=== PATIENT | male | born 2000 | race Caucasian/White ===

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

== ENCOUNTER 2024-12-24 09:49 | Observation (INO) | payer OTHER ==
[~2024-12-24] VITALS: Ht 182.9 cm; Wt 135.2 kg
[~2024-12-24 09:49] MED LIST: IBUP600T42 PO
[2024-12-24] MEDS ORDERED: LISI20TA33 (10:11)
[2024-12-24] MEDS ORDERED: EPIN0.3I11 IM (10:11)
[2024-12-24] MEDS ORDERED: BUPR-766 (10:11)
[2024-12-24] MEDS ORDERED: FAMO1TAB11 PO (10:11)
[2024-12-24] MEDS: MORPHINE 2 MG/ML 1 ML VIAL IV ONE (10:15)
[2024-12-24] MEDS: ONDANSETRON 4MG 2ML VIAL IV ONE (10:15)
[2024-12-24 11:08] LABS: BASO # 0.0 10^3/uL (0.0-0.2); BASO % 0.2 % (0.0-1.0); EOS # 0.2 10^3/uL (0.0-0.5); EOS % 2.0 % (0.0-3.0); LYMPH # 1.7 10^3/uL (1.5-5.0); LYMPH % 16.6 % (24.0-44.0); MONO # 0.7 10^3/uL (0.0-0.8); MONO % 6.4 % (2.0-8.0); NEUTROPHILS # 7.5 10^3/uL (1.5-8.5); NEUTROPHILS % 74.3 % (36.0-66.0); PLATELET COUNT, AUTOMATED 208 10^3/uL (150-450)
[2024-12-24 11:09] LABS: KETONE, URINE AUTO RFX NEGATIVE (NEGATIVE); LEUKOCYTE ESTERASE UR AUTO RFX NEGATIVE (NEGATIVE); MUCUS, URINE RFX SMALL (NEGATIVE); NITRITE, URINE AUTO RFX NEGATIVE (NEGATIVE); RBC, URINE AUTO RFX 0 /HPF (0-3); SQUAM EPITHELIAL CELL UR AURFX 0 /HPF (0-6); WBC, URINE AUTO RFX 0 /HPF (0-3)
[2024-12-24 11:19] LABS: INR 0.86
[2024-12-24] MEDS ORDERED: LISI20TA33 PO (11:19)
[2024-12-24] MEDS ORDERED: BUPR-766 PO (11:19)
[2024-12-24] MEDS ORDERED: HOME MED LIST COMPLETE! XX SCH (11:20)
[2024-12-24 11:29] LABS: ALT/SGPT 24 U/L (7.0-40); AST/SGOT 20 U/L (<34); CALCIUM LEVEL 9.1 MG/DL (8.5-10.1); CARBON DIOXIDE LEVEL 27 MMOL/L (20-31); CHLORIDE LEVEL 102 MMOL/L (98-107); CREATININE FOR GFR 0.85 MG/DL (0.70-1.30); GLOMERULAR FILTRATION RATE > 90.0 (>60); POTASSIUM SERUM 4.7 MMOL/L (3.5-5.1); SODIUM LEVEL 141 MMOL/L (136-145)
[2024-12-24] MEDS ORDERED: ACETAMINOPHEN 325 MG TAB PO PRN (12:55)
[2024-12-24] MEDS ORDERED: MOM 30 ML SUSPENSION UDC PO PRN (12:55)
[2024-12-24] MEDS ORDERED: GLUCAGON INJ 1 MG VIAL SC PRN (12:55)
[2024-12-24] MEDS ORDERED: MAALOX 30 ML SUSP *UDC PO PRN (12:55)
[2024-12-24] MEDS ORDERED: GLUCOSE 4 GM CHEW PO PRN (12:55)
[2024-12-24] MEDS ORDERED: DEXTROSE 50% 50 ML SYRINGE IV PRN (12:55)
[2024-12-24] MEDS: NS (Normal Saline) 0.9% 1,000 ML IV SCH (13:16)
[2024-12-24] MEDS ORDERED: MIDAZOLAM INJ 2 MG/2 ML VIAL As Ordered ONE (15:41)
[2024-12-24] MEDS ORDERED: SUCCINYLCHOLINE 100MG/5ML SYRINGE As Ordered ONE (15:41)
[2024-12-24] MEDS ORDERED: ROCURONIUM BROMIDE 50MG/5ML VIAL As Ordered ONE (15:45)
[2024-12-24] MEDS ORDERED: dexAMETHasone 4 MG/ML 1 ML VIAL As Ordered ONE (15:45)
[2024-12-24] MEDS ORDERED: ACETAMINOPHEN 1000MG/100ML IV BAG As Ordered ONE (15:46)
[2024-12-24] MEDS ORDERED: LIDOCAINE 2% 100 MG/5 ML SDV (FOR ANES.) As Ordered ONE (15:47)
[2024-12-24] MEDS ORDERED: dexmedeTOMIDine (4 MCG/ML) 200 MCG/50 ML BTL As Ordered ONE (15:48)
[2024-12-24] MEDS ORDERED: HYDROmorphone HCL 2 MG/ML 1 ML VIAL As Ordered ONE (16:19)
[2024-12-24] MEDS: ZOSYN 3.375GM VIAL As Ordered ONE (16:25)
[2024-12-24] MEDS ORDERED: GLYCOPYRROLATE INJ 0.2 MG/ML 2 ML VIAL As Ordered ONE (16:37)
[2024-12-24] MEDS ORDERED: SUGAMMADEX SODIUM 500 MG/5 ML VIAL As Ordered ONE (16:59)
[2024-12-24] MEDS ORDERED: ONDANSETRON 4MG 2ML VIAL As Ordered ONE (16:59)
[2024-12-24] MEDS ORDERED: LR 1,000 ML IV SCH (17:40)
[2024-12-24] MEDS: ONDANSETRON 4MG 2ML VIAL IV PRN (17:47)
[2024-12-24] MEDS: HYDROMORPHONE HCL 0.5 MG/0.5 ML SYRINGE IV PRN (17:48)
[2024-12-24 18:38] VITALS: BP 117/74; TEMP 98.1; O2SAT 95
[2024-12-24 19:30] VITALS: BP 120/65; TEMP 98.4; O2SAT 96
[2024-12-24] MEDS ORDERED: PERCOCET 5MG/325MG TAB PO PRN ×2 (19:45)
[2024-12-24] MEDS ORDERED: MORPHINE 4 MG/ML 1 ML VIAL IV PRN (19:50)
[2024-12-24 20:30] VITALS: BP 126/72; TEMP 98.2; O2SAT 91
[2024-12-24 21:30] VITALS: BP 120/64; TEMP 98; O2SAT 94
[2024-12-24 22:30] VITALS: BP 120/66; TEMP 97.7; O2SAT 92
[2024-12-25 00:30] VITALS: BP 124/74; TEMP 97.9; O2SAT 94
[2024-12-25 04:30] VITALS: BP 116/66; TEMP 98; O2SAT 94
[2024-12-25 07:08] LABS: CALCIUM LEVEL 8.5 MG/DL (8.5-10.1); CARBON DIOXIDE LEVEL 25 MMOL/L (20-31); CHLORIDE LEVEL 103 MMOL/L (98-107); CREATININE FOR GFR 0.93 MG/DL (0.70-1.30); GLOMERULAR FILTRATION RATE > 90.0 (>60); MAGNESIUM LEVEL 1.8 MG/DL (1.8-2.4); POTASSIUM SERUM 4.1 MMOL/L (3.5-5.1); SODIUM LEVEL 141 MMOL/L (136-145)
[2024-12-25 08:30] VITALS: BP 130/75; TEMP 99; O2SAT 95
[2024-12-25 08:59] LABS: ESTIMATED AVERAGE GLUCOSE 100.0 MG/DL (60-110)
[2024-12-25 12:00] VITALS: BP 132/77; TEMP 99.3; O2SAT 97
== END 2024-12-25 12:17 | disposition home or self-care (01) ==
LOC: M ED 09:49 → M ED INP 12:54 → INTOOBSV 12:54 → M MSPAV 18:38
PROVIDERS: ADMIT Student in an Organized Health Care Education/Training Program; ATTEND Student in an Organized Health Care Education/Training Program
DX: K35.890 Other acute appendicitis without perforation or gangrene (principal); I10 Essential (primary) hypertension; F32.A Depression, unspecified; Z79.899 Other long term (current) drug therapy; Z91.013 Allergy to seafood
CPT/HCPCS: 36415; 44970; 71045; 74176; 80048; 80076; 81001; 82150; 83036; 83690; 83735; 85025; 85610; 86850; 86900; 86901; 88304; 96360; 96361; 99284; J0131; J0330; J0665; J1100; J1171; J1596; J2250; J2405; J2543; J2550; J3010; S2900

== ENCOUNTER → 2025-02-04 | Outpatient (CLI) | payer OTHER ==
[~2025-02-04] MED LIST changes: +BUPR-766; +BUPR-766 PO; +EPIN0.3I11 IM; +FAMO1TAB11 PO; +LISI20TA33; +LISI20TA33 PO
== END ==
LOC: M RAD 06:54
PROVIDERS: ATTEND Surgery
DX: R10.11 Right upper quadrant pain (principal); K76.0 Fatty (change of) liver, not elsewhere classified